=== PATIENT | female | born 1955 | race Caucasian/White ===

== ENCOUNTER 2017-04-10 20:51 | Emergency (ER) | payer OTHER ==
[~2017-04-10] VITALS: Ht 167.6 cm; Wt 70.3 kg
[~2017-04-10 20:51] MED LIST: ALBUTEROL2.5 MG/3 M INH; BENZONATATE100 MG PO; BUDESONIDE EC3 MG PO; CELEBREX200 MG; CELEBREX200 MG PO; CIPROFLOXACIN500 MG PO; CLEOCIN HCL300 MG PO; CLINDAMYCIN HC300 MG PO; CYMBALTA60 MG; CYTOMEL25 MCG PO; DICLOFENAC SODI75 MG PO; DILAUDID4 MG PO; DULOXETINE HCL60 MG PO; ENDOCET 5-3251 EACH PO; ENTOCORT EC3 MG PO; ESTRACE42.5 GM; ESTROVEN ENERG1 EACH PO; FLUCONAZOLE100 MG PO; FLUOXETINE HCL10 MG PO; FLUOXETINE HCL20 MG PO; HYDROCODON-ACE1 EA11 PO; HYDROXYZINE HCL25 MG PO; L-THYROXINE PO; LEVOTHYROXINE25 MCG PO; LEVOTHYROXINE75 MCG PO; LORAZEPAM0.5 MG PO; LORAZEPAM1 MG; LORAZEPAM1 MG PO; MAXALT10 MG PO; MELATIN3 MG PO; METOPROLOL TART25 MG PO; MIRALAX17 GM PO; MULTIVITAMINS1 EAC7 PO; NORCO 5-325 TA1 EACH PO; OMEGA 3 1,0001 EACH PO; OXYCODONE HCL5 MG PO; PERCOCET 10-321 EACH PO; PERCOCET 5-3251 EACH PO; PERCOCET 7.5-31 EACH PO; PHENERGAN25 MG RC; RIZATRIPTAN10 M1 PO; VITAMIN B-1100 MG PO; WELLBUTRIN XL300 MG; XARELTO10 MG PO; ZOFRAN ODT4 MG SL
[2017-04-10] MEDS ORDERED: LIOTHYRONINE S25 MCG PO (21:04)
[2017-04-11] MEDS ORDERED: METOPROLOL TART25 MG PO (16:49)
[2017-04-11] MEDS ORDERED: PREDNISONE20 MG PO (19:07)
== END 2017-04-10 22:27 | disposition home or self-care (01) ==
LOC: ED 20:51
DX: T63.441A Toxic effect of venom of bees, accidental (unintentional), initial encounter (principal); Z87.891 Personal history of nicotine dependence; Z98.51 Tubal ligation status; Z85.828 Personal history of other malignant neoplasm of skin; Z88.5 Allergy status to narcotic agent; Z79.899 Other long term (current) drug therapy
CPT/HCPCS: 96372; 99282; J1200; Q0163

== ENCOUNTER 2017-04-11 16:15 | Emergency (ER) | payer OTHER ==
[~2017-04-11] VITALS: Ht 167.6 cm; Wt 70.3 kg
[~2017-04-11 16:15] MED LIST changes: +LIOTHYRONINE S25 MCG PO
[2017-04-11] MEDS ORDERED: METOPROLOL TART25 MG PO (16:49)
[2017-04-11] MEDS ORDERED: PREDNISONE20 MG PO (19:07)
--- NOTE | 2017-04-11 21:46 | EKG ---
[facility] [address] [facility] [place] [address] Signed Sinus rhythm with frequent and consecutive premature ventricular complexes Increased R/S ratio in V1, consider early transition or posterior infarct Abnormal ECG No previous ECGs available Confirmed by LUCHO DICKEY MD ([id number]) on 04/11/2017 9:46:10 PM Electronically Signed By: LUCHO DICKEY MD 04/11/17 2146 PATIENT NAME: AMBERISABELPatrick FOSTER Electrocardiogram DATE OF : 51 PHYSICIAN: LUCHO DICKEY MD REPORT #: [id number] REPORT IS CONFIDENTIAL AND NOT TO BE RELEASED WITHOUT AUTHORIZATION
== END 2017-04-11 19:21 | disposition home or self-care (01) ==
LOC: ED 16:15
DX: R00.8 Other abnormalities of heart beat (principal); R06.02 Shortness of breath; G43.909 Migraine, unspecified, not intractable, without status migrainosus; Z90.710 Acquired absence of both cervix and uterus; Z85.828 Personal history of other malignant neoplasm of skin; Z98.51 Tubal ligation status; Z88.5 Allergy status to narcotic agent; Z79.899 Other long term (current) drug therapy
CPT/HCPCS: 71020; 80053; 83735; 83880; 84484; 85025; 93005; 93010; 96361; 96374; 99284; J1200; J7030; J7512

== ENCOUNTER 2018-03-24 05:55 | Day surgery (SDC) | payer MEDICARE, OTHER ==
[~2018-03-24] VITALS: Ht 167.6 cm; Wt 72.6 kg
--- NOTE | ~2018-03-24 | OR ---
[facility] [address] [place], [place] [address] Draft DATE OF OPERATION: 03/24/2018 SURGEON: Cindy Santos DPM PREOPERATIVE DIAGNOSES: 1. Hammertoe deformity right foot digits two and three. 2. Contracture of muscle right foot leading to the digits two and three. 3. Pain in joints of the right foot metatarsophalangeal joints two and three right foot. 4. Deformity of toes right foot. POSTOPERATIVE DIAGNOSES: 1. Hammertoe deformity right foot digits two and three. 2. Contracture of muscle right foot leading to the digits two and three. 3. Pain in joints of the right foot metatarsophalangeal joints two and three right foot. 4. Deformity of toes right foot. PROCEDURE: 1. Metatarsophalangeal joint arthropathy with implant second and third metatarsophalangeal joints regions right foot. 2. Extensor tenotomy second and third digits right foot. 3. Hammertoe correction and arthrodesis of the PIPJ of the digits two and three right foot with allograft bone implant. APPELLATE LAW CLERK: Sharad Edmonds DPM. ANESTHESIA PROVIDER: Kimi Singh CRNA, nurse blower installer. ANESTHESIA: Anesthesia provided approximately 16 mL with 1:1 mix of 2% lidocaine plain and 0.5% ropivacaine was injected above the patient's ankle region. HEMOSTASIS: With an ankle tourniquet. ESTIMATED BLOOD LOSS: Less than 5 mL or minimal. Anesthesia provided was a local with general. PATIENT NAME: ISABEL CLARK OPERATIVE REPORT DATE OF : 51 REPORT #: [id number] PHYSICIAN: CINDY SANTOS DPM PCP: MISBAH BERMUDEZ PAC REPORT IS CONFIDENTIAL AND NOT TO BE RELEASED WITHOUT AUTHORIZATION [facility] [address] [place], [place] [address] Draft PROCEDURE IN DETAIL: The patient was brought into the operating room and placed upon the operating table in the supine position. Regional popliteal block had been performed prior. The patient was then placed upon the operating table in the supine position. Following IV sedation, local anesthesia was administered about the patient's right ankle region. The right foot was then scrubbed, prepped, and draped in the usual sterile technique. An Esmarch bandage was then utilized to exsanguinate the patient's right foot and then it was left wrapped around the ankle to act as a tourniquet. Attention was then directed to the dorsal aspect of the third digit metatarsophalangeal joint where approximately a 4 cm incision was performed over the metatarsophalangeal joint extending over the dorsal digits crossing the PIPJ. The incision was then deepened through subcutaneous tissue, care being taken to identify, retract the vital nerves, vascular structures. Bleeders were cauterized and ligated as necessary. Careful dissection continued down to the level of the joint capsule. At this point, separate incision was performed in the mid tarsal region at approximately 5 mm in length and going transverse from medial to lateral over the extensor tendons to the digits two and three. A #64 blade was inserted through the incision and the extensor tendons were held tight and each one individually tendons leading to the digits two and three the extensor tendons were savored and release was performed. Attention was then redirected to the surgical site over the 3 digit and metatarsophalangeal joint. A #64 Bennett blade was utilized to perform a linear capsulotomy medial to the extensor tendon and the joint capsule. A soft tissue was reflected medially and laterally to expose the articular surface at the surgical site. It should be noted that at this time, the third metatarsal head had some cystic changes present from previous surgery also there had been an abundant amount of scar tissues down through the subcutaneous tissue that was remnant of her previous surgery. There was some material resembling gouty tophi that was present about the third metatarsal head area. Portion of this sampled and sent to pathology for further identification. Sagittal saw was then utilized to resect the part of the head of the third metatarsals as well as part of the base of the proximal phalanx denuding the cartilage and producing the raw bone. Next, instrumention was utilized including broaches and Alida young to create rectangular holes within to bone going into the medullary canal or both the metatarsal and proximal phalanx for placement of the silastic implants and stems. Shaping occurred. There was no obvious break through the cortex. Cortex of both bones was remained intact. Using the instrumentation provided, this rectangular hole was created into the medullary canal. The area was then flushed with copious amounts of sterile normal saline and the silastic implant was put in place. Also note that mild trimming occurred to restrict the distal stem of the silastic implant 1 cm to live room for the hammer toe correction implant. The same procedure was then repeated on the second MTPJ and normal anatomy was encountered with this dissection as this area has not had previous surgery. Attention was then directed to the PIPJ PATIENT NAME: ISABEL CLARK OPERATIVE REPORT DATE OF : 51 REPORT #: [id number] PHYSICIAN: CINDY SANTOS DPM PCP: MISBAH BERMUDEZ PAC REPORT IS CONFIDENTIAL AND NOT TO BE RELEASED WITHOUT AUTHORIZATION [address] [place], [place] [address] Draft level of the third digit where the head of the proximal phalanx was resected. The base of the middle phalanx cartilage was denuded. Utilizing a small drill bit provided and navy fighter pilot hole was created into the medullary canal of the proximal phalanx as well as middle phalanx. Next, an allograft bone implant that was used to act as a dough was inserted into the proximal phalanx then inserted into the base of the middle phalanx. Compression was added. The two adjacent aspect of the bone were brought into the close approximation and held in place with the allograft material. The same procedure was then repeated on the second digit. The area was flushed with copious amounts of sterile normal saline. Extensor tendon was reapproximated and wrapped at the level of the PIPJ utilizing 3-0 Vicryl. Subcutaneous tissue was closed utilizing 4-0 Vicryl, joint capsule closure was performed utilizing 3-0 Vicryl, and the skin was closed utilizing 5-0 nylon in continues interlocking suture technique. Postoperative injection consistent of 5 mL of 0.5% ropivacaine and 1 mL of dexamethasone phosphate was then injected about the distal mid central foot region. Ankle tourniquet was removed and prompt hyperemic response was noted to all digits. A silver Mepilex dressing was then applied at the primary dressing followed by rolled gauze, fluff gauze, and Coban wrap. The patient had tolerated both the procedure and the anesthesia well. She was escorted to the recovery area by anesthesia with vital signs stable. Capillary refill time was less than three seconds to all digits. Following the period of postoperative monitoring, the patient was discharged to home with both written and oral instructions. JEAN-PAUL Molina/EDUARDO /[id number] Copies: ~ PATIENT NAME: ISABEL CLARK OPERATIVE REPORT DATE OF : 51 REPORT #: [id number] PHYSICIAN: CINDY SANTOS DPM PCP: MISBAH BERMUDEZ PAC REPORT IS CONFIDENTIAL AND NOT TO BE RELEASED WITHOUT AUTHORIZATION
[~2018-03-24 05:55] MED LIST changes: +FLECAINIDE ACE100 MG PO; +PREDNISONE20 MG PO
--- NOTE | 2018-03-24 06:34 | NUR ---
PATIENT READY FOR SURGERY.
--- NOTE | 2018-03-24 07:01 | NUR ---
ANGÉLICA VERAS IN TO TO BLOCK TO RIGHT LEG. PATIENT TOLERATED WELL.
--- NOTE | 2018-03-24 07:11 | NUR ---
PATIENT TO SURGERY.
--- NOTE | 2018-03-24 09:54 | NUR ---
STAFF HAD BEEN VERY BUSY PREPPING PT-OR STAFF ALLOWED ME TO PRAY QUICKLY WITH PT. CONNECTED WITH HER ROLANDO, THEY SOME BIG TRIPS PLANNED AND ARE HOPING AND PRAYING PT IS READY TO GO. WILL STAY CONNECTED NEEDED
--- NOTE | 2018-03-24 11:16 | NUR ---
03/24/18 1116 Palmira Martinez 1020 PT ARRIVED TO PACU ON 6L VIA MASK. PT REACTIVE TO VERBAL STIMULI. RESP EVEN AND UNLABORED. 1025 PT DENIES NAUSEA, REPORTS PAIN IN CHEST AND BACK. PT MOVING AROUND TO STRETCH MUSCLES IN BACK. PT REPORTS BACK PAIN HX. O2 MASK REMOVED. PT REPORT NO PAIN IN FOOT AND FOOT IS NUMB, EDUCAIOTN GIVEN ON BLOCK. 1040 PT REPORTING PAIN IN BACK/CHEST HAS INCREASED TO 7/10 PAIN AND NAUSEA. 1055 PT SITTING ON EDGE OF BED TO STRETCH BACK. PT REPORTS NO CHANGE. CNRA NOTIFIED. PIGS FEET FINISHER AT BEDSIDE. 1100 NEW ORDERS RECEIVED, MEDICATION GIVEN AND EKG ORDERED AND DONE. 1110 PT REPORTING A DECREASE IN PAIN AND NAUSEA, PT RESTING IN BED WITH EYES CLOSED, 3L NC PLACE ON PT D/T O2 SAT TO 88%.
--- NOTE | 2018-03-24 11:48 | NUR ---
PATIENT ARRIVED BACK TO DAY SURGERY. PATIENT WAS ABLE TO BE DISCHARGED FROM PACU, BUT DUE TO NAUSEA/PHENERGAN/O2 NEED, IS AWATING TITRATION FROM O2. 2L O2 SATS ARE 98%. PATIENT RATES LEFT ARM PAIN 2/10, NO SENSATION OR MOVEMENT TO RIGHT FOOT, BLOCK IS ACTIVE. NO NAUSEA AT THIS TIME, VSS, IN ROOM WITH PATIENT.
--- NOTE | 2018-03-24 12:31 | NUR ---
PATIENT SITTING UP IN BED, TITRATED TO ROOM AIR AND 97%. PATIENT IS TOLERATING MINIMAL PO INTAKE OF ICE CHIPS AND A CRACKER, DENIES PAIN OR NAUSEA. RIGHT FOOT DRESSING LOOSENED AROUND #2 AND #3 TOES DUE TO DUSKY COLOR, TOES PINKED UP RIGHT AWAY. RIGHT FOOT DRESSING RESECURED. RIGHT HAND IV D/C'D WITH CATHETER INTACT.
--- NOTE | 2018-03-24 13:17 | NUR ---
PATIENT GIVEN WHEELCHAIR RIDE TO FRONT DOOR. PATIENT PLACED SELF IN CAR AND IS TRANSPORTING HER HOME.
--- NOTE | 2018-03-24 18:49 | EKG ---
[facility] [address] [facility] [place] [address] Signed Normal sinus rhythm Nonspecific ST abnormality Prolonged QT Abnormal ECG When compared with ECG of 18-MAR-2018 11:40, No significant change was found Confirmed by LUCHO DICKEY MD ([id number]) on 03/24/2018 6:48:39 PM Electronically Signed By: LUCHO DICKEY MD 03/24/18 1849 PATIENT NAME: AMBERISABELPatrick FOSTER Electrocardiogram DATE OF : 51 PHYSICIAN: LUCHO DICKEY MD REPORT #: [id number] REPORT IS CONFIDENTIAL AND NOT TO BE RELEASED WITHOUT AUTHORIZATION
== END 2018-03-24 13:10 | disposition home or self-care (01) ==
LOC: DS 05:55
PROVIDERS: Podiatrist Foot & Ankle Surgery
PROC: 0SGP0ZZ (ICD-10-PCS; principal; 2018-03-24 06:45)
PROC: 0LNV0ZZ Release Right Foot Tendon, Open Approach (ICD-10-PCS; 2018-03-24 06:45)
DX: M20.41 Other hammer toe(s) (acquired), right foot (principal); M25.571 Pain in right ankle and joints of right foot; M62.471 Contracture of muscle, right ankle and foot; Z88.5 Allergy status to narcotic agent; Z79.899 Other long term (current) drug therapy
CPT/HCPCS: 73630; 76000; 93005; 93010; J0690; J1100; J1885; J2250; J2405; J2550; J2704; J2795; J3010; J7120